=== PATIENT | male | born 1950 | race Asian ===

== ENCOUNTER 2017-05-16 05:48 | Day surgery (SDC) | payer MEDICARE, OTHER ==
[2017-05-16] MEDS ORDERED: PROPOFOL 20 ML (07:29)
[2017-05-16] MEDS ORDERED: LIDOCAINE 100 MG SYRINGE (07:29)
== END 2017-05-16 08:21 | disposition home or self-care (01) ==
LOC: GIL 05:48
DX: K21.9 Gastro-esophageal reflux disease without esophagitis (principal); K29.60 Other gastritis without bleeding; E11.9 Type 2 diabetes mellitus without complications; I10 Essential (primary) hypertension
CPT/HCPCS: 43239; 82962; 87081